=== PATIENT | female | born 2000 | race African-American/Black ===

== ENCOUNTER 2019-06-07 20:57 | Emergency (ER) | payer BC ==
[~2019-06-07] VITALS: Ht 162.6 cm; Wt 90.9 kg
[2019-06-07 21:01] VITALS: Ht 162.6 cm; Wt 90.9 kg
[2019-06-07] MEDS ORDERED: HYDROCHLOROTH12.5 M1 PO (21:02)
[2019-06-07] MEDS ORDERED: MEDROL DOSE PACK4 MG PO (21:26)
[2019-06-07] MEDS ORDERED: VISTARIL25 MG PO (21:26)
[2019-06-07 21:53] VITALS: BP 127/82
== END 2019-06-07 21:53 | disposition home or self-care (01) ==
LOC: D.ER 20:57
DX: L50.9 Urticaria, unspecified (principal)

== ENCOUNTER 2019-06-28 16:25 | Emergency (ER) | payer MEDICAID ==
[~2019-06-28 16:25] MED LIST: HYDROCHLOROTH12.5 M1 PO; MEDROL DOSE PACK4 MG PO; VISTARIL25 MG PO
[2019-06-28 16:50] VITALS: Ht 162.6 cm
[2019-06-28] MEDS ORDERED: PREDNISONE10 MG PO (18:45)
[2019-06-28 18:56] VITALS: BP 131/70
== END 2019-06-28 18:56 | disposition home or self-care (01) ==
LOC: D.ER 16:25
DX: L25.9 Unspecified contact dermatitis, unspecified cause (principal)